=== PATIENT | male | born 1985 | race Caucasian/White ===

== ENCOUNTER 2017-02-04 05:22 | Emergency (ER) | payer OTHER ==
--- NOTE | 2017-02-04 05:27 | PDOC ---
History of Present Illness - General Stated Complaint: OVERDOSE Time Seen by Provider: 02/04/17 05:27 Past History - Past Medical History Allergies/Adverse Reactions: Allergies Allergy/AdvReac Type Severity Reaction Status Date / Time No Known Allergies Allergy Verified 09/29/14 21:08 Home Medications: Ambulatory Orders Pantoprazole Sodium [Protonix] 40 mg PO DAILY 09/07/12 GI Disorders: Yes (GERD) - Surgical History Abdominal Surgery: Yes (HERNIA) - Immunization History Td Vaccination: Yes Immunization Up to Date: Yes - Suicide/Smoking/Psychosocial Hx Smoking Status: No Smoking History: Never smoked Have you smoked in the past 12 months: Yes Number of Cigarettes Smoked Daily: 1 'Breaking Loose' booklet given: 09/29/14 Hx Alcohol Use: Yes (WEEK ENDS) Drug/Substance Use Hx: No Substance Use Type: Alcohol
[2017-02-04] MEDS ORDERED: ONDANSETRON 4 MG/2 ML VIAL IVPUSH ONE (05:28)
[2017-02-04] MEDS ORDERED: ONDANSETRON 4 MG/2 ML VIAL ONE ×2 (05:31→05:36)
[2017-02-04] MEDS ORDERED: ACETAMINOPHEN INJECTION 100 ML IVPB ONE (05:35)
--- NOTE | 2017-02-04 05:36 | PDOC ---
History of Present Illness - General Chief Complaint: Overdose Stated Complaint: OVERDOSE Time Seen by Provider: 02/04/17 05:27 - History of Present Illness Initial Comments: 02/04/17 05:42 The patient is a 31 year old male with no significant PMH who presents via ambulance for evaluation of possible overdose. EMS reports that the patient's friends called EMS after the patient walked into their house and collapsed. He received 4 of narcan en route 2 via nasal and 2 via iv with the patient becoming more alert. The patient denies any heroin, cocaine, or other illicit drug use. He reports drinking 6 beers earlier tonight and states that he drank too much. He denies daily alcohol use and notes alcohol use only occasionally. He denies fevers, chills, SOB, chest pain, abdominal pain, or changes with urination or bowel movements. The patient has had two episodes of vomiting and continues to report nausea. Past History - Past Medical History Allergies/Adverse Reactions: Allergies Allergy/AdvReac Type Severity Reaction Status Date / Time No Known Allergies Allergy Verified 02/04/17 05:28 Home Medications: Ambulatory Orders Pantoprazole Sodium [Protonix] 40 mg PO DAILY 09/07/12 GI Disorders: Yes (GERD) - Surgical History Abdominal Surgery: Yes (HERNIA) - Immunization History Td Vaccination: Yes Immunization Up to Date: Yes - Suicide/Smoking/Psychosocial Hx Smoking Status: No Smoking History: Unknown if ever smoked Have you smoked in the past 12 months: No Number of Cigarettes Smoked Daily: 1 Information on smoking cessation initiated: No 'Breaking Loose' booklet given: 09/29/14 Hx Alcohol Use: Yes Drug/Substance Use Hx: Yes (unknown) Substance Use Type: Alcohol Review of Systems - Review of Systems Comments:: 02/04/17 05:47 Constitutional: No fevers, chills, fatigue, malaise HEENT: No Rhinorrhea, nasal congestion, visual changes Cardiovascular: No chest pain, syncope, palpitations, lightheadedness Respiratory: No Cough, SOB, Hemoptysis, Gastrointestinal: Nausea, Vomiting. No Abdominal pain, Constipation, Diarrhea, Melena Genitourinary: No Dysuria, Frequency, Urgency, Hesitancy, Hematuria, Flank pain Musculoskeletal: No Myalgia, arthralgia Skin: No rashes, bruising, pallor Neurologic: Headache. No Dizziness, Numbness, Weakness, or Tingling Psychiatric: No Hallucinations. No SI or HI *Physical Exam - Vital Signs Last Vital Signs Temp Pulse Resp BP Pulse Ox 106 H 16 126/113 100 02/04/17 05:28 02/04/17 05:28 02/04/17 05:28 02/04/17 05:28 - Physical Exam Comments: 02/04/17 05:48 General Appearance: Nourished. No Apparent Distress HEENT: EOMI, YADY. No Pharyngeal Erythema, Tonsillar Exudate, Tonsillar Erythema Neck: No Cervical Lymphadenopathy Respiratory/Chest: Lungs Clear, Normal Breath Sounds. No Crackles, Rales, Rhonchi, Wheezing Cardiovascular: Regular Rhythm, Regular Rate. No Murmur, Gallops, Rubs Gastrointestinal/Abdominal: Normal Bowel Sounds, Soft. 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 Heart Score/ECG Review #1 ECG reviewed & interpreted by me at: 06:00 (Tachycardic otherwise normal) General ECG Interpretation: Sinus Rhythm, Normal Intervals, No acute ischemic changes ED Treatment Course - LABORATORY CBC & Chemistry Diagram: 02/04/17 05:26 02/04/17 05:26 Medical Decision Making - Medical Decision Making 02/04/17 05:49 The patient is a 31 year old male with no significant PMH who presents via ambulance for evaluation of possible overdose. Differential includes but is not limited to: Heroin Overdose, Alcohol intoxication, infectious, toxic, metabolic derangement. Given that the patient responded to narcan en route, it is possible his symptoms are due to heroin overdose in addition to his alochol intoxication. We will send a cbc, cmp, alcohol level, ua, drug screen, ekg to evaluate further. We will treat with zofran, iv tylenol and iv fluids in the meantime and continue to monitor and reassess. 02/04/17 06:55 Patient signed out to the day team pending iv hydration, repeat lipase and ua/ utox. *DC/Admit/Observation/Transfer Diagnosis at time of Disposition: ETOH abuse - Discharge Dispostion Disposition: HOME Condition at time of disposition: Stable - Referrals - Patient Instructions Printed Discharge Instructions: DI for Alcohol Abuse Additional Instructions: Please make sure you follow up with your primary care doctor within 1 week. Please make sure you take any and all prescription medications only as directed. If your symptoms get worse or if you develop new symptoms, please return to the emergency department. In the future, please be careful about alcohol ingestion. If you have trouble regulating the amount that you drink, please talk to your primary care doctor about it. - Post Discharge Activity
[2017-02-04 05:37] LABS: BASO % 0.1 % (0-2.0); EOS % 0.1 % (0-4.5); HEMATOCRIT 47.4 % (35.4-49); HEMOGLOBIN 15.8 GM/dL (11.7-16.9); LYMPH % 23.9 % (8-40); MCH 31.5 pg (25.7-33.7); MCHC 33.4 g/dl (32.0-35.9); MEAN CELL VOLUME 94.2 fl (80-96); MEAN PLT VOLUME 7.8 fl (7.5-11.1); MONO % 4.8 % (3.8-10.2); NEUT % 71.1 % (42.8-82.8); PLATELET COUNT 259 K/MM3 (134-434); RBC 5.03 M/mm3 (4.00-5.60); RDW 13.4 % (11.9-15.9); WHITE BLOOD COUNT 10.6 K/mm3 (4.0-10.0)
[2017-02-04] MEDS ORDERED: ACETAMINOPHEN 1000 MG/100 ML VIAL (NON FORMULARY) IVPB ONE (05:37)
[2017-02-04 06:07] LABS: ALBUMIN 4.7 g/dl (3.4-5.0); ALK PHOS 73 U/L (45-117); ANION GAP 14 (8-16); BILIRUBIN,TOTAL 0.3 mg/dL (0.2-1.0); BLOOD UREA NITROGEN 9 mg/dL (7-18); CALCIUM 9.2 mg/dL (8.5-10.1); CHLORIDE 104 mmol/L (98-107); CO2 25 mmol/L (21-32); CREATININE 1.2 mg/dL (0.7-1.3); GLUCOSE,RANDOM 132 mg/dL (74-106); POTASSIUM 4.2 mmol/L (3.5-5.1); SGOT/AST 13 U/L (15-37); SGPT/ALT 17 U/L (12-78); SODIUM 143 mmol/L (136-145); TOT PROT 7.5 g/dl (6.4-8.2)
[2017-02-04 06:47] VITALS: BMI 23.6
--- NOTE | 2017-02-04 06:58 | PDOC ---
Attending Attestation - Resident Resident Name: Oleg Mcdaniel - ED Attending Attestation I have performed the following: I have examined & evaluated the patient, The case was reviewed & discussed with the resident, I agree w/resident's findings & plan - HPI HPI: 02/04/17 06:54 PT COMES WITH OD AND PASSING OUT AT A FRIENDS HOME; HE DRANK ALCOHOL AND TOOK XANAX. DENIES TAKING COCAINE OR HEROIN. PT IS AWAKE AND ALERT; BROUGHT BY EMS WHO GAVE HIM NARCAN AND BROUGHT HIM AROUND. - Physicial Exam PE: 02/04/17 06:55 AGREE WITH RESIDENT - Medical Decision Making 02/04/17 06:55 PT HAS ELEVATED LIPASE 800+; WE WILL HYDRATE AND REPEAT LIPASE TEST. PT WILL BE SIGNED OUT TO THE DAY TEAM
[2017-02-04] MEDS ORDERED: SODIUM CHLORIDE 1,000 ML IV STA (07:09)
--- NOTE | 2017-02-04 07:22 | PDOC ---
*Physical Exam - Vital Signs Last Vital Signs Temp Pulse Resp BP Pulse Ox 106 H 16 126/113 100 02/04/17 05:28 02/04/17 05:28 02/04/17 05:28 02/04/17 05:28 - Physical Exam General Appearance: Yes: Nourished. No: Apparent Distress HEENT: positive: Normal ENT Inspection, Normal Voice Neck: positive: Supple. negative: Tender Respiratory/Chest: positive: Normal Breath Sounds. negative: Respiratory Distress, Accessory Muscle Use Cardiovascular: positive: Regular Rhythm, S1, S2. negative: Regular Rate ( tachycardia), Edema, JVD, Murmur Vascular Pulses: Dorsalis-Pedis (R): 2+, Doralis-Pedis (L): 2+ Gastrointestinal/Abdominal: positive: Normal Bowel Sounds, Flat, Soft. negative : Tender, Organomegaly, Pulsatile Mass, Distended, Guarding, Tenderness, Mass, Hepatomegaly, Spleenomegaly Musculoskeletal: positive: Normal Inspection. negative: CVA Tenderness Extremity: positive: Normal Capillary Refill, Normal Inspection ED Treatment Course - LABORATORY CBC & Chemistry Diagram: 02/04/17 05:26 02/04/17 05:26 - ADDITIONAL ORDERS Additional order review: Laboratory Results 02/04/17 02/04/17 02/04/17 05:26 05:26 05:26 Sodium 143 Potassium 4.2 Chloride 104 Carbon Dioxide 25 Anion Gap 14 BUN 9 Creatinine 1.2 Creat Clearance w eGFR > 60 Random Glucose 132 H Calcium 9.2 Total Bilirubin 0.3 AST 13 L ALT 17 Alkaline Phosphatase 73 Total Protein 7.5 Albumin 4.7 Lipase 876 H Alcohol, Quantitative 174.9 H* 02/04/17 05:26 RBC 5.03 MCV 94.2 MCHC 33.4 RDW 13.4 MPV 7.8 Neutrophils % 71.1 Lymphocytes % 23.9 Monocytes % 4.8 Eosinophils % 0.1 Basophils % 0.1 - Medications Given in the ED: ED Medications Discontinued Medications Generic Name Dose Route Start Last Admin Trade Name Freq PRN Reason Stop Dose Admin Acetaminophen 1,000 mg 02/04/17 05:37 02/04/17 06:52 Ofirmev Injection - IVPB 02/04/17 05:38 1,000 mg ONCE ONE Administration Ondansetron HCl 4 mg 02/04/17 05:28 02/04/17 05:32 Zofran Injection IVPUSH 02/04/17 05:29 4 mg ONCE ONE Administration Medical Decision Making - Medical Decision Making 02/04/17 07:22 Pt signed out by night team. Pt is a 31y/o M with no significant PMH who was BIBEMS from a friend's house after collapsing. Pt had been drinking a lot, and he states he may have taken Xanax, but does not remember. Currently hemodynamically stable, AAOx3, and in NAD. Pt complains of 1 episode of nonbloody nonbilious vomiting a mild headache. Denies abdominal pain, cp, sob, diarrhea. Plan -1 L NS -repeat lipase -f/u Utox/UA 02/04/17 10:25 -repeat lipase 356 -pt stable for discharge *DC/Admit/Observation/Transfer Diagnosis at time of Disposition: ETOH abuse - Discharge Dispostion Disposition: HOME Condition at time of disposition: Stable Admit: No - Referrals - Patient Instructions Printed Discharge Instructions: DI for Alcohol Abuse Additional Instructions: Please make sure you follow up with your primary care doctor within 1 week. Please make sure you take any and all prescription medications only as directed. If your symptoms get worse or if you develop new symptoms, please return to the emergency department. In the future, please be careful about alcohol ingestion. If you have trouble regulating the amount that you drink, please talk to your primary care doctor about it. - Post Discharge Activity
[2017-02-04 09:22] LABS: URINE APPEARANCE CLEAR; URINE BILIRUBIN NEGATIVE (NEGATIVE); URINE BLOOD NEGATIVE (NEGATIVE); URINE COLOR STRAW; URINE GLUCOSE (UA) NEGATIVE (NEGATIVE); URINE KETONE NEGATIVE (NEGATIVE); URINE LEUK ESTERASE NEGATIVE (NEGATIVE); URINE NITRITE NEGATIVE (NEGATIVE); URINE PROTEIN NEGATIVE (NEGATIVE); URINE UROBILINOGEN NEGATIVE mg/dL (0.2-1.0)
[2017-02-04 09:25] LABS: URINE AMPHETAMINES NEGATIVE ng/ml (CUTOFF=500); URINE BARBITURATES NEGATIVE ng/ml (CUTOFF=200); URINE BENZODIAZEPINES NEGATIVE ng/ml (CUTOFF=200)
[2017-02-04 09:26] LABS: COCAINE, UR POSITIVE ng/ml (CUTOFF=300); METHADONE, UR NEGATIVE ng/ml (CUTOFF=300); OPIATES, URI POSITIVE ng/ml (CUTOFF=300); PHENCYCLIDINE,URINE NEGATIVE ng/ml (CUTOFF=25)
[2017-02-04 10:45] VITALS: BP 98/57; PULSE 84; TEMP 98.4
--- NOTE | 2017-02-04 10:55 | EKG ---
Test Reason : Blood Pressure : / mmHG Vent. Rate : 104 BPM Atrial Rate : 104 BPM P-R Int : 140 ms QRS Dur : 104 ms QT Int : 342 ms P-R-T Axes : 076 070 058 degrees QTc Int : 449 ms SINUS TACHYCARDIA OTHERWISE NORMAL ECG NO PREVIOUS ECGS AVAILABLE BASELINE ARTIFACT Confirmed by NYA BLOOD, CORDELIA ([id number]) on 02/04/2017 10:54:52 AM Referred By: Confirmed By:CORDELIA FAY MD
== END 2017-02-04 10:40 | disposition home or self-care (01) ==
LOC: JER 05:22
PROC: 3E0337Z Introduction of Electrolytic and Water Balance Substance into Peripheral Vein, Percutaneous Approach (ICD-10-PCS; principal; 2017-02-04)
PROC: 3E033GC Introduction of Other Therapeutic Substance into Peripheral Vein, Percutaneous Approach (ICD-10-PCS; 2017-02-04)
PROC: 3E033NZ Introduction of Analgesics, Hypnotics, Sedatives into Peripheral Vein, Percutaneous Approach (ICD-10-PCS; 2017-02-04)
DX: F10.120 Alcohol abuse with intoxication, uncomplicated (principal); Y90.6 Blood alcohol level of 120-199 mg/100 ml
CPT/HCPCS: 36415; 71010-TC; 80053; 80307; 81003; 83690; 85025; 93005; 93010; 99285-25

== ENCOUNTER 2021-05-30 18:57 | Emergency (ER) | payer BC, OTHER ==
[2021-05-30 19:11] VITALS: BP 116/61; PULSE 68; TEMP 98; BMI 20.5
== END 2021-05-30 20:30 | disposition home or self-care (01) ==
LOC: FER 18:57
DX: S20.212A Contusion of left front wall of thorax, initial encounter (principal); W11.XXXA Fall on and from ladder, initial encounter
CPT/HCPCS: 71101-TC-LT-FY; 99283-25

== ENCOUNTER 2023-07-06 04:19 | Day surgery (SDC) | payer OTHER ==
[2023-07-04 15:36] VITALS: BMI 19.8
[2023-07-06 09:32] VITALS: TEMP 97.8
[2023-07-06] MEDS ORDERED: ETOMIDATE 20 MG/10 ML VIAL IVPUSH ONE (10:17)
[2023-07-06 11:06] VITALS: BP 111/58; PULSE 60; RESP 16
== END 2023-07-06 11:07 | disposition home or self-care (01) ==
LOC: JASU-ENDO 04:19
PROVIDERS: ATTEND Internal Medicine Gastroenterology
PROC: 0DB78ZX Excision of Stomach, Pylorus, Via Natural or Artificial Opening Endoscopic, Diagnostic (ICD-10-PCS; 2023-07-06)
PROC: 0DB68ZX Excision of Stomach, Via Natural or Artificial Opening Endoscopic, Diagnostic (ICD-10-PCS; 2023-07-06)
PROC: 0DB48ZX Excision of Esophagogastric Junction, Via Natural or Artificial Opening Endoscopic, Diagnostic (ICD-10-PCS; principal; 2023-07-06 09:45)
DX: K22.82 Esophagogastric junction polyp (principal); K29.60 Other gastritis without bleeding
CPT/HCPCS: 88305-TC; 88342-TC